=== PATIENT | male | born 1960 | race African-American/Black ===

== ENCOUNTER 2017-09-19 16:13 | Inpatient (IN) | payer MEDICARE, MEDICAID ==
[2017-09-19 16:45] VITALS: BP 127/82
[2017-09-19] MEDS ORDERED: Magnesium Hydroxide (MOM) 30 mL UDC PO PRN (16:50)
[2017-09-19] MEDS ORDERED: Maalox 30 mL Cup PO PRN (16:50)
[2017-09-19] MEDS ORDERED: Hydrocodone/APAP 5mg/325mg Tab PO PRN (17:01)
[2017-09-20] MEDS: Multivitamin Tab PO SCH (08:27)
--- NOTE | 2017-09-20 14:06 | History & Physical ---
ADMIT DATE: PATIENT'S IDENTIFICATION: A 56-year-old male. CHIEF COMPLAINT: "I am fine." HISTORY OF PRESENT ILLNESS: A 56-year-old -[place] male with history of mild mental retardation, lives independently, who has a history of smoking cigarette, brought into Emergency Room after the patient was noted to have suicidal ideation with overdose on a bottle of Benadryl. The patient initially presented to [facility] where the patient was seen by ER MD followed by hospitalization on the medical floor and once the patient was stabilized, the patient is transferred here to Geropsych Unit for further care. PAST MEDICAL HISTORY: Remarkable mild mental retardation, questionable seizure disorder with possible treatment for tuberculosis in the past. MEDICATIONS: Current medication which he is taking has been reviewed and reconciled. ALLERGIES: The patient is not allergic to any medication. SOCIAL HISTORY: The patient lives by himself in [facility]. The patient has a history of smoking cigarette, occasional alcohol use and the patient has used marijuana and crack cocaine in the past. FAMILY MEDICAL HISTORY: Remarkable for diabetes, hypertension and cancer. REVIEW OF SYSTEMS: The patient has pain on his right hand after the patient sustained a laceration on his hand. The patient currently denies any chest pain, shortness of breath, palpitation, dizziness, nausea, vomiting, diarrhea, dysuria. No history of any seizure or syncopal episode. No weight loss. No weight gain. No history of any tingling, numbness. The patient denies any hematuria, hematochezia, or melena. PHYSICAL EXAMINATION: GENERAL: The patient is alert, awake, oriented, lying in the bed without any acute distress. VITAL SIGNS: Temperature 98.4, pulse 60, respiratory rate is 20, blood pressure 138/85. SKIN: Warm to touch. Adequate skin turgor. HEENT: Normocephalic, atraumatic. Extraocular muscles are intact. Tongue was pink and coated. Poor dentition noted. No oral lesion. No exudate. No sinus tenderness. External auditory canal and tympanic membranes are well visualized. NECK: Supple, no JVD, no hepatojugular reflex. No lymphadenopathy, thyromegaly or carotid bruit. HEART: Both heart sounds are regular. No S3, no S4, no murmur. CHEST AND LUNGS: Equal in expansion, no wheezing, no crackles. ABDOMEN: Soft. No guarding. No rigidity. Liver, spleen not palpable. No palpable mass. EXTREMITIES: No edema, no cyanosis or clubbing. Right hand has swelling. There is open wound on the flexor aspect of the right hand also noted with abrasions on the base of the right thumb also noted. NEUROLOGIC: Alert, awake, oriented to time, place, person. 2-12 cranial nerves are intact. Power in upper and lower extremities are 5+. Sensation to touch intact. Babinskis in both toes are going down. No cerebral sign. AVAILABLE DIAGNOSTIC DATA: Performed at [facility] has been reviewed. Total time reviewing the records approximately 5 minutes. CLINICAL IMPRESSION: 1. Status post overdose on Benadryl. 2. Status post fall with right hand injury ruled out for compartment syndrome. The patient has had rhabdomyolysis cleared from the medical standpoint at [facility]. 3. Psychotic disorder. 4. Mild mental retardation. 5. Seizure disorder. PLAN: 1. Psychiatric evaluation and management deferred to psychiatrist. 2. Seizure medication. 3. Seizure precautions. 4. Pain management. 5. Local wound care. 6. Antibiotic. 7. General nursing care. 8. Nutritional support. 9. We will follow this patient during the stay in the hospital. I sincerely thank you, Dr. Magallon for giving us opportunity to participate in patient of yours. JOB# [id number]
[2017-09-21] MEDS: Multivitamin Tab PO SCH (08:42)
[2017-09-21] MEDS: Sulfamethoxazole/TMP 800/160mg Tab PO SCH (16:31)
--- NOTE | 2017-09-22 03:20 | Psychosocial Evaluation ---
DATE OF SERVICE: IDENTIFYING DATA: This is a 56-year-old -[place] male here on a 5150 hold for being a danger to self. HISTORY OF PRESENT ILLNESS: The patient presented on a 5150 hold after expressing suicidal ideations with plan to overdose on Benadryl. The patient currently could not recount any inciting incidents. Has been living by himself. Does have a history of mild mental retardation, unsure if he is currently getting any services from [facility]. PAST PSYCHIATRIC TREATMENT: The patient states that this is his first suicide attempt. Admits that he has been diagnosed with mild mental retardation in the past. PAST MEDICAL HISTORY: Significant for tuberculosis, seizures. SOCIAL HISTORY: The patient lives independently. Admits to having a history of marijuana and crack/cocaine use, does not recall when his last use was. MENTAL STATUS EXAMINATION: GENERAL APPEARANCE AND BEHAVIOR: The patient is resting comfortably in bed, not in acute distress. Right arm heavily bandaged. The patient stated that he fell off a flight of stairs and cut himself. Good eye contact throughout interview. SPEECH: Normal, rate, rhythm, and tone. MOOD AND AFFECT: The patient characterizes his mood is depressed. Affect is congruent. THOUGHT PROCESS AND THOUGHT CONTENT: Thought content is linear, logical. The patient endorsing suicidal ideations with plan to overdose. COGNITION: The patient is alert, awake, oriented x3. Memory is intact. INSIGHT AND JUDGMENT: Poor. DIAGNOSTIC IMPRESSION: Major depressive disorder, severe, recurrent, without psychotic features; and mild mental retardation by history. PLAN: We will continue patient on Zoloft 25 mg every day and Ambien 5 mg at bedtime for insomnia. We will monitor patient on a daily basis and titrate medications as needed. JOB# [id number]
[2017-09-22] MEDS: Sulfamethoxazole/TMP 800/160mg Tab PO SCH ×2 (09:00→17:32)
[2017-09-22] MEDS: Multivitamin Tab PO SCH (09:00)
[2017-09-22] MEDS ORDERED: Probiotic Screen MC PRN (09:45)
--- NOTE | 2017-09-22 21:30 | Psychosocial Evaluation ---
DATE OF SERVICE: 09/20/2017 The patient was seen and evaluated. The patient's chart reviewed. CHIEF COMPLAINT: "I attempted to hurt myself by overdosing." JUSTIFICATION FOR ADMISSION: Suicidal ideation, status post suicide attempt. HISTORY OF PRESENT ILLNESS: A 56-year-old male with a history of mild MR, linked with the [facility]. He reported that he was very angry, sad, depressed. He had attempted to overdose on Benadryl. Today on [id number], he reports feeling overwhelmed, distraught, disengaged, but also happy that he survived. PAST MEDICAL HISTORY: Please see full H and P. FAMILY PSYCHIATRIC HISTORY: Unknown. LEGAL HISTORY: Unknown. PAST PSYCHIATRIC HISTORY: History of depression, suicide attempt in the past as early as 2015. CURRENT MEDICATIONS: The patient is on amlodipine, lorazepam, magnesium hydroxide, multivitamin, Ambien. MENTAL STATUS EXAMINATION: Sad, depressed, melancholic. No psychotic symptoms. Poor insight, judgment and impulse control. Status post severe suicide attempt. SOCIAL HISTORY: History of alcohol and drug use denied. Vitals reviewed and stable. PRIMARY DIAGNOSIS: Major depressive disorder, severe without psychosis. SECONDARY DIAGNOSIS: None. MEDICAL DIAGNOSIS: High blood pressure. ASSESSMENT: A 56-year-old male presented distraught, melancholic, depressed, status post severe suicide attempt. We will continue monitoring and evaluating. PLAN: 1. Admit the patient. 2. Start Zoloft 25 mg. 3. Medical doctor to follow up on the seizure disorder and history of rhabdomyolysis. We will continue to monitor and evaluate until we obtain more collateral baseline information. ESTIMATED STAY: Between 5-10 days. DISCHARGE CRITERIA: Demonstrates euthymic mood. STRENGTH: Good ability for insight in the near future. WEAKNESS: Poor coping skills. JOB# [id number]
--- NOTE | 2017-09-22 22:23 | General Progress Note ---
Subjective - Review of Systems Service Date: 09/22/17 Subjective: Patient seen and examined chart reviewed. Patient doing fine denied any complaints afebrile Objective - Physical Exam Vitals and I&O: Vital Signs Temp 97.5 F 09/22/17 19:55 Pulse 83 09/22/17 19:55 Resp 18 09/22/17 20:00 BP 165/96 09/22/17 19:55 Pulse Ox 100 09/22/17 19:55 Intake & Output 09/22/17 09/22/17 09/23/17 06:59 18:59 06:59 Intake Total 360 1200 240 Balance 360 1200 240 Intake: Oral 360 1200 240 Other: # Voids 2 4 1 # Bowel Movements 0 1 Stool Characteristics Formed Formed Formed Active Medications: Current Medications Acetaminophen (Tylenol) 650 mg PO Q4HR PRN PRN Reason: Mild Pain / Temp above 100 Stop: 11/18/17 16:49 Acetaminophen/Hydrocodone Bitart ([place] 5mg/325mg) 1 tab PO Q6H PRN PRN Reason: moderate pain Stop: 11/18/17 17:00 Al Hydrox/Mg Hydrox/Simethicone (Maalox) 30 ml PO Q4HR PRN PRN Reason: GI DISTRESS Stop: 11/18/17 16:49 Amlodipine Besylate (Norvasc) 2.5 mg PO DAILY PRN PRN Reason: SBP >150 Stop: 11/18/17 16:58 Last Admin: 09/22/17 06:36 Dose: 2.5 mg Lactobacillus Rhamnosus (Culturelle 15b) 1 each PO DAILY [facility] Stop: 10/01/17 08:59 Lorazepam (Ativan) 0.5 mg PO Q4HR PRN; Protocol PRN Reason: Anxiety Stop: 10/19/17 16:49 Magnesium Hydroxide (Milk Of Magnesia) 30 ml PO HS PRN PRN Reason: Constipation Miscellaneous (Probiotic Screen) 1 ea [facility] PRN PRN PRN Reason: PROTOCOL Stop: 11/21/17 09:44 Multivitamins/Vitamin C (Theragran) 1 tab PO DAILY [facility] Stop: 11/19/17 08:59 Last Admin: 09/22/17 09:00 Dose: 1 tab Mupirocin (Bactroban Oint) 1 appl TP BID [facility] Stop: 11/20/17 16:59 Last Admin: 09/22/17 17:31 Dose: 1 appl Sertraline HCl (Zoloft) 25 mg PO DAILY [facility] PRN Reason: Protocol Stop: 11/20/17 08:59 Last Admin: 09/22/17 09:00 Dose: 25 mg Trimethoprim/Sulfamethoxazole (Bactrim Ds) 1 tab PO BID [facility] Stop: 10/01/17 16:59 Last Admin: 09/22/17 17:32 Dose: 1 tab Zolpidem Tartrate (Ambien) 5 mg PO HS PRN PRN Reason: Insomnia Stop: 11/18/17 16:49 Last Admin: 09/21/17 21:17 Dose: 5 mg Cardiovascular: Regular rate Lungs: Clear to auscultation Extremities: Other (right hand wound clean) Assessment/Plan - Assessment Assessment: Right hand cellulitis HTN Mental health disorder - Plan Plan: Continue Bactrim Continue wound care Fall precaution Monitor vitals Plan of care discussed with nursing staff
[2017-09-23] MEDS: Multivitamin Tab PO SCH (08:55)
[2017-09-23] MEDS: Lactobacillus Rhamnosus GG 15 Billion CFU CAP.SPRINK PO SCH (08:55)
[2017-09-23] MEDS: Sulfamethoxazole/TMP 800/160mg Tab PO SCH ×2 (08:55→16:27)
--- NOTE | 2017-09-23 09:01 | Progress Notes ---
DATE: 09/22/2017 SUBJECTIVE: The patient is currently in the hospital, tried to kill himself, not really remembering the events, got very upset due to possible closure of [facility]. The patient with mild MR, notes he feels "okay," minimizing the reasons that he is in the hospital, somewhat superficial improvement in his moods, still appearing depressed, withdrawn, sleeping well, eating well, no agitation, no events, calm, cooperative and fairly friendly. Medications were reviewed. MENTAL STATUS EXAMINATION: Calm, cooperative, friendly, minimizing any SI, impulse control questionable. He remains impulsive and unpredictable. PLAN: Continue to monitor. Continue Zoloft with plans to escalate the dose. We will monitor and follow up. Encourage group as well as milieu therapy. JOB# [id number]
--- NOTE | 2017-09-23 22:09 | Progress Notes ---
DATE: 09/23/2017 SUBJECTIVE: The patient in the hospital, tried to kill himself, remains depressed, somewhat withdrawn, isolating but notes his mood is "better" and fairly superficial in his responses. He seems to be in better spirits, calm, cooperative, no agitation. Medications reviewed. No side effects. MENTAL STATUS EXAMINATION: Calm, cooperative, somewhat withdrawn, minimizing his suicide effort. PLAN: We will continue to monitor. There are ongoing safety concerns. We will continue to titrate and adjust medications, for example increase Prozac dosing to 50 mg. JOB# [id number]
[2017-09-24] MEDS: Multivitamin Tab PO SCH (08:59)
[2017-09-24] MEDS: Sulfamethoxazole/TMP 800/160mg Tab PO SCH ×2 (08:59→17:33)
[2017-09-24] MEDS: Lactobacillus Rhamnosus GG 15 Billion CFU CAP.SPRINK PO SCH (08:59)
--- NOTE | 2017-09-25 01:51 | Progress Notes ---
DATE: 09/24/2017 The patient in the hospital, tried to kill himself, remains in better spirits, calm, cooperative, minimizing the reasons for being in the hospital, somewhat superficial in his responses, but he seems to be approaching his baseline, calmer, cooperative, no agitation, no escalation of behaviors. MENTAL STATUS EXAMINATION: Calm, cooperative, somewhat withdrawn, minimizing his suicide effort. Denying any overt SI. PLAN: Continue to monitor. We will continue to adjust medications. I did increase Zoloft dosing yesterday. JOB# [id number]
[2017-09-25] MEDS: Lactobacillus Rhamnosus GG 15 Billion CFU CAP.SPRINK PO SCH (10:08)
[2017-09-25] MEDS: Sulfamethoxazole/TMP 800/160mg Tab PO SCH ×2 (10:08→16:15)
[2017-09-25] MEDS: Multivitamin Tab PO SCH (10:09)
--- NOTE | 2017-09-25 15:47 | General Progress Note ---
Subjective - Review of Systems Service Date: 09/25/17 Subjective: Patient seen and examined hand wound improving patient denied any pain Objective - Physical Exam Vitals and I&O: Vital Signs Temp 98.9 F 09/25/17 15:07 Pulse 87 09/25/17 15:07 Resp 19 09/25/17 15:07 BP 134/76 09/25/17 15:07 Pulse Ox 98 09/25/17 15:07 Intake & Output 09/24/17 09/25/17 09/25/17 18:59 06:59 18:59 Intake Total 1200 120 Balance 1200 120 Intake: Oral 1200 120 Other: # Voids 3 2 Active Medications: Current Medications Acetaminophen (Tylenol) 650 mg PO Q4HR PRN PRN Reason: Mild Pain / Temp above 100 Stop: 11/18/17 16:49 Acetaminophen/Hydrocodone Bitart ([place] 5mg/325mg) 1 tab PO Q6H PRN PRN Reason: moderate pain Stop: 11/18/17 17:00 Al Hydrox/Mg Hydrox/Simethicone (Maalox) 30 ml PO Q4HR PRN PRN Reason: GI DISTRESS Stop: 11/18/17 16:49 Amlodipine Besylate (Norvasc) 2.5 mg PO DAILY PRN PRN Reason: SBP >150 Stop: 11/18/17 16:58 Last Admin: 09/22/17 06:36 Dose: 2.5 mg Lactobacillus Rhamnosus (Culturelle 15b) 1 each PO DAILY [facility] Stop: 10/01/17 08:59 Last Admin: 09/25/17 10:08 Dose: 1 each Lorazepam (Ativan) 0.5 mg PO Q4HR PRN; Protocol PRN Reason: Anxiety Stop: 10/19/17 16:49 Last Admin: 09/24/17 21:23 Dose: 0.5 mg Magnesium Hydroxide (Milk Of Magnesia) 30 ml PO HS PRN PRN Reason: Constipation Miscellaneous (Probiotic Screen) 1 ea [facility] PRN PRN PRN Reason: PROTOCOL Stop: 11/21/17 09:44 Multivitamins/Vitamin C (Theragran) 1 tab PO DAILY [facility] Stop: 11/19/17 08:59 Last Admin: 09/25/17 10:09 Dose: 1 tab Mupirocin (Bactroban Oint) 1 appl TP BID [facility] Stop: 11/20/17 16:59 Last Admin: 09/25/17 10:08 Dose: 1 appl Sertraline HCl (Zoloft) 50 mg PO DAILY [facility] PRN Reason: Protocol Stop: 11/23/17 08:59 Last Admin: 09/25/17 10:08 Dose: 50 mg Trimethoprim/Sulfamethoxazole (Bactrim Ds) 1 tab PO BID [facility] Stop: 10/01/17 16:59 Last Admin: 09/25/17 10:08 Dose: 1 tab Zolpidem Tartrate (Ambien) 5 mg PO PRN PRN Reason: Insomnia Stop: 11/18/17 16:49 Last Admin: 09/24/17 21:23 Dose: 5 mg Cardiovascular: Regular rate Lungs: Clear to auscultation Extremities: Other (right hand wound clean) Assessment/Plan - Assessment Assessment: Right hand cellulitis and wound improving HTN Mental health disorder - Plan Plan: Continue Bactrim Continue wound care Fall precaution Monitor vitals Plan of care discussed with nursing staff
[2017-09-26] MEDS: Sulfamethoxazole/TMP 800/160mg Tab PO SCH (09:15)
[2017-09-26] MEDS: Multivitamin Tab PO SCH (09:15)
[2017-09-26] MEDS: Lactobacillus Rhamnosus GG 15 Billion CFU CAP.SPRINK PO SCH (09:16)
--- NOTE | 2017-09-26 13:06 | Progress Notes ---
DATE: 09/25/2017 SUBJECTIVE: The patient seems to be improving, states he feels "okay." No agitation, no escalation of behaviors, calm, cooperative, friendly. Eating on his own volition, bathrooming on his own volition, states he is not having any suicidal thoughts and is hopeful to leave the hospital and get back to work. MEDICATIONS: Noted. MENTAL STATUS EXAMINATION: Calm, cooperative, remains withdrawn, but improvement noted, brighter affect, more optimistic. PLAN: We will continue to monitor and monitor for further 24 hours. JOB# [id number]
--- NOTE | 2017-09-26 20:55 | Discharge Summary ---
DATE OF DISCHARGE: 09/26/2017 JUSTIFICATION FOR HOSPITALIZATION: The patient attempted suicide, ended up at the ICU. Medically cleared, transferred to [facility] on a 5150 hold. HISTORY OF PRESENT ILLNESS: A 56-year-old male with a spectrum of developmental disability on the milder and got very upset after finding out the [facility] was closing down, decided he wanted to kill himself, overdosed on Benadryl, also had a fall, ended up in the Emergency Room and then the ICU. He was medically cleared. The patient is depressed, stating he was frustrated, scared the [facility] was going to close down that his major source of support. The patient attesting to decrease sleep, fair appetite. He had been hopeless in the moment of his overdose effort. PAST PSYCHIATRIC HISTORY: He states that he had cut himself in the past, when he was much younger. MEDICATIONS: Noted. MENTAL STATUS EXAMINATION: Please see full psych eval for details. PROVISIONAL DIAGNOSES: Major depression, recurrent, severe, no psychosis. Also, developmental disability. Under medical please see full H and P. HOSPITAL COURSE: After initial assessment, the patient started on Zoloft. Zoloft dosing was titrated. Over the course of the hospitalization, his mood improved, affect improved. Noted to be getting along well with staff and peers, more sociable, less isolative, adamantly and consistently denying any SI. He was describing his mood is "much better" happy, sleeping well, eating well. By 09/26/2017, he was devoid of any suicidal symptoms, was more hopeful, denying any psychological distress, no turmoil. CONDITION UPON DISCHARGE: Improved, good ADLs, good eye contact. Speech within normal limits. Mood "better." Affect bright and broad. Thought processes were linear, also engaged, no SI, no intent, no plan. No HI, no intent, no plan. No psychotic symptoms noted. Better insight, better judgment, certainly better impulse control. DISCHARGE DIAGNOSES: Developmental disability, also major depression, recurrent, severe, no psychosis. Under medical please see full H and P. PROGNOSIS: The patient remains treatment compliant and follows up with outpatient mental health services. Prognosis will improve, otherwise guarded. [facility]# [id number]
== END 2017-09-26 13:45 | disposition home or self-care (01) | DRG 885 ==
LOC: GERO 16:13
PROVIDERS: ADMIT Psychiatry & Neurology Psychiatry; ATTEND Psychiatry & Neurology Psychiatry
DX: F33.2 Major depressive disorder, recurrent severe without psychotic features (principal); M62.82 Rhabdomyolysis; L03.113 Cellulitis of right upper limb; F70 Mild intellectual disabilities; G40.909 Epilepsy, unspecified, not intractable, without status epilepticus; F29 Unspecified psychosis not due to a substance or known physiological condition; I10 Essential (primary) hypertension; Z86.11 Personal history of tuberculosis; Z87.891 Personal history of nicotine dependence; Z72.89 Other problems related to lifestyle
CPT/HCPCS: 90899; G0410; Z7610